=== PATIENT | female | born 1995 | race African-American/Black ===

== ENCOUNTER 2019-05-05 01:07 | Emergency (ER) | payer OTHER ==
[2019-05-05] MEDS ORDERED: SODIUM CHLORIDE 0.9% 1000 ML INFUS.BAG IV ONE (01:24)
[2019-05-05] MEDS ORDERED: ACETAMINOPHEN 1000 MG/100 ML VIAL (NON FORMULARY) IVPB ONE (01:24)
[2019-05-05] MEDS ORDERED: FAMOTIDINE 20 MG/50 ML IVPB 20 MG/50 ML MG IVPB ONE ×2 (01:24→03:14)
--- NOTE | 2019-05-05 01:42 | PDOC ---
History of Present Illness - General Stated Complaint: BACK AND ABDOMINAL PAIN Time Seen by Provider: 05/05/19 01:19 - History of Present Illness Initial Comments: 05/05/19 01:43 23 y/o F hx of narcoplepsy presents to the ER with 1 day of epigastric pain radiating to her back. She last had cereal and popcorn today and had chicken parmesan with pasta earlier for lunch today. She has had one episode on non- bloody non-bilious emesis a few minutes prior to presentation to ER. Her pain is now 5/10 in severity and is more improved after vomiting. She denies any fevers, chills, sick contacts, diarrhea, bloody stool or melena. 05/05/19 01:44 Past History - Past Medical History Allergies/Adverse Reactions: Allergies Allergy/AdvReac Type Severity Reaction Status Date / Time No Known Allergies Allergy Verified 05/05/19 01:44 Home Medications: Ambulatory Orders Cephalexin [Keflex] 500 mg PO BID #10 capsule 05/05/19 *Physical Exam - Physical Exam Comments: 05/05/19 01:43 PE: GENERAL: Awake, alert, and fully oriented, in no acute distress HEAD: No signs of trauma, normocephalic, atraumatic EYES: PERRLA, EOMI, sclera anicteric, conjunctiva clear ENT: Auricles normal inspection, hearing grossly normal, nares patent, oropharynx clear without exudates. Moist mucosa NECK: Normal ROM, supple, no lymphadenopathy, JVD, or masses LUNGS: No distress, speaks full sentences, clear to auscultation bilaterally HEART: Regular rate and rhythm, normal S1 and S2, no murmurs, rubs or gallops, peripheral pulses normal and equal bilaterally. ABDOMEN: Soft, , normoactive bowel sounds epigastric tenderness. No guarding, no rebound. No masses EXTREMITIES : Normal inspection, Normal range of motion, no edema. No clubbing or cyanosis NEUROLOGICAL: Cranial nerves II through XII grossly intact. Normal speech, normal gait, no focal sensorimotor deficits SKIN: Warm, Dry, normal turgor, no rashes or lesions noted ED Treatment Course - LABORATORY CBC & Chemistry Diagram: 05/05/19 02:18 05/05/19 02:18 Medical Decision Making - Medical Decision Making 05/05/19 01:53 23 y/o F hx of narcoplepsy presents to the ER with 1 day of epigastric pain radiating to her back Bedside RUQ U/S showed gallstone with no cholecystitis Hernandez's sign negative on U/s cbc, cmp, ua, pt/inr, ptt, lipase 05/05/19 04:24 RUQ u/s FINDINGS: Right upper quadrant ultrasound: The liver is normal, without mass or biliary duct dilation. The gallbladder contains small stones without secondary findings of cholecystitis. The CBD is not dilated and measures4 millimeters in diameter. Right kidney measures 9.1centimeters in length and is unremarkable. The visualized aorta and IVC are normal. Pancreas is partially obscured, but appears normal. Abdominal duplex: The main portal vein demonstrates normal hepatopedal flow Discharge - Discharge Information Problems reviewed: Yes Clinical Impression/Diagnosis: UTI (urinary tract infection) Qualifiers: Urinary tract infection type: site unspecified Hematuria presence: without hematuria Qualified Code(s): N39.0 - Urinary tract infection, site not specified Gallstone Qualifiers: Cholecystitis presence: without cholecystitis Biliary obstruction: without biliary obstruction Qualified Code(s): K80.20 - Calculus of gallbladder without cholecystitis without obstruction Condition: Improved Disposition: HOME - Admission No - Additional Discharge Information Prescriptions: Cephalexin [Keflex] 500 mg PO BID #10 capsule - Follow up/Referral Referrals: Nixon Feliz MD [Primary Care Provider] - - Patient Discharge Instructions Patient Printed Discharge Instructions: DI for Gallstones, DI for Urinary Tract Infection (UTI) Additional Instructions: You were seen in the ER for abdominal pain you were found to have gallstones and a urinary tract infections you were given medications for pain and nausea You are being sent home with a prescription for antibiotics take as directed even if you start to feel better. Return to the ER if abdominal pain worsens/ does not go away fevers, chills, nausea, vomiting. Follow up with your PCP - Post Discharge Activity
--- NOTE | 2019-05-05 01:52 | PDOC ---
Documentation entered by Patricia Martinez SCRIBE, acting as scribe for Yolanda Marks DO. Yolanda Marks DO: This documentation has been prepared by the Michelle carroll Adrianna, SCRIBE, under my direction and personally reviewed by me in its entirety. I confirm that the documentation accurately reflects all work, treatment, procedures, and medical decision making performed by me. Attending Attestation - Resident Resident Name: Jyoti Valadez - ED Attending Attestation I have performed the following: I have examined & evaluated the patient, The case was reviewed & discussed with the resident, I agree w/resident's findings & plan, Exceptions are as noted - HPI HPI: The patient is a 23 year old female, with a significant PMH of narcolepsy and ?? DM, who presents to the ED for evaluation of abdominal pain for 2 days. Patient complains of epigastric abdominal pain that radiates to her back. She reports having pasta and chicken parm for lunch, followed by cereal and popcorn for dinner. She developed the epigastric pain shortly after. Patient endorses one episode of nausea and NBNB vomit en route to the ED. She reports one episode of similar symptoms 3 months ago, where she was seen at an Urgent Care and told it was viral. She denies any other complaints at this time. Denies fever, chills, chest pain, SOB, diarrhea, constipation, dysuria, hematuria. Allergies: NKA, NKDA Surgical History: None reported Social History: Denies EtOH, tobacco, or illicit drug use - Physicial Exam PE: Constitutional: Awake, alert, oriented. No acute distress. Head: Normocephalic. Atraumatic Eyes: PERRL. EOMI. Conjunctivae are not pale. ENT: Mucous membranes are moist and intact. Posterior pharynx without exudates or erythema. Uvula midline. Neck: Supple. Full ROM. No lymphadenopathy. Cardiovascular: Regular rate. Regular rhythm. S1, S2 regular. Distal pulses are 2+ and symmetric. Pulmonary/Chest: No evidence of respiratory distress. Clear to auscultation bilaterally No wheezing, rales or rhonchi. Abdominal: +Epigastric tenderness to palpation. Soft and non-distended. No rebound, guarding or rigidity. No organomegaly. No palpable masses. Good bowel sounds. Back: No CVA tenderness. Musculoskeletal: No edema. No cyanosis. No clubbing. Full range of motion in all extremities. Nocalf tenderness. Radial/pedal pulses are intact and 2+ bilaterally Skin: Skin is warm and dry. No petechiae. No purpura. Neurological: Alert and oriented to person, place, and time. Cranial nerves II -XII are grossly intact. Normal speech. Strength is grossly symmetric. No sensory deficits. Psychiatric: Good eye contact. Normal interaction, affect and behavior. - Medical Decision Making 05/05/19 01:48 I, Dr. Yolanda Marks, DO, attest that this document has been prepared under my direction and personally reviewed by me in its entirety. I further attest, that it accurately reflects all work, treatment, procedures and medical decision -making performed by me. a/p: 23yo female with epigastric pain that radiates to her back -assoc with 1 episode of n/v - nbnb -bedside ultrasound shows gallstones without sono murphys or pericholecystic fluid or gbw thickening -concern for gastritis, pud, gallstones/symptomatic cholelithiasis, pancreatitis -ate cereal and popcorn -will send labs, ultrasound -will give ivf hydration, pepcid, zofran -will monitor and reassess 05/05/19 02:10 pt signed out to the oncoming ED team pending labs, ultrasound, meds, and reassess
[2019-05-05 02:04] VITALS: BP 113/64; PULSE 80; TEMP 98.7; BMI 40.1
[2019-05-05 02:35] LABS: BASO % 0.8 % (0-2.0); EOS % 4.9 % (0-4.5); HEMATOCRIT 37.9 % (32.4-45.2); HEMOGLOBIN 11.9 GM/dL (10.7-15.3); LYMPH % 21.9 % (8-40); MCHC 31.4 g/dl (32.0-36.0); MEAN CELL VOLUME 79.6 fl (80-96); MEAN PLT VOLUME 8.3 fl (7.5-11.1); MONO % 4.9 % (3.8-10.2); NEUT % 67.5 % (42.8-82.8); PLATELET COUNT 312 K/MM3 (134-434); RBC 4.76 M/mm3 (3.60-5.2); RDW 14.4 % (11.6-15.6); WHITE BLOOD COUNT 8.6 K/mm3 (4.0-10.0)
[2019-05-05 02:58] LABS: INR 1.01 (0.83-1.09); PROTHROMBIN TIME (PATIENT) 11.9 SEC (9.7-13.0)
[2019-05-05 03:12] LABS: ALBUMIN 3.6 g/dl (3.4-5.0); BILIRUBIN,TOTAL 0.3 mg/dL (0.2-1); BLOOD UREA NITROGEN 10.9 mg/dL (7-18); CALCIUM 9.2 mg/dL (8.5-10.1); CREATININE 0.7 mg/dL (0.55-1.3); POTASSIUM 5.2 mmol/L (3.5-5.1); TOT PROT 7.4 g/dl (6.4-8.2)
[2019-05-05] MEDS ORDERED: SODIUM CHLORIDE 1,000 ML IV STA (04:02)
[2019-05-05 05:29] LABS: EPI CELLS 6.2 /HPF (0-5/HPF); HYALINE CASTS 3 /lpf (0-8); PH,URINE 7.5 (5.0-8.0); URINE APPEARANCE CLEAR; URINE BACTERIA 297.5 /hpf (NEGATIVE); URINE BILIRUBIN NEGATIVE (NEGATIVE); URINE COLOR YELLOW; URINE GLUCOSE (UA) NEGATIVE (NEGATIVE); URINE KETONE NEGATIVE (NEGATIVE); URINE LEUK ESTERASE TRACE (NEGATIVE); URINE NITRITE NEGATIVE (NEGATIVE); URINE PROTEIN NEGATIVE (NEGATIVE); URINE RBC 1 /hpf (0-4); URINE WBC 10 /hpf (0-5)
[2019-05-05] MEDS ORDERED: CEPHALEXIN MONOHYDRATE 500 MG CAPSULE (UD) PO ONE (05:52)
[2019-05-05] MEDS ORDERED: CEPHALEXIN MONOHYDRATE 500 MG CAPSULE (UD) ONE (06:06)
== END 2019-05-05 06:19 | disposition home or self-care (01) ==
LOC: JER 01:07
PROC: 3E0337Z Introduction of Electrolytic and Water Balance Substance into Peripheral Vein, Percutaneous Approach (ICD-10-PCS; principal; 2019-05-05)
PROC: 3E033GC Introduction of Other Therapeutic Substance into Peripheral Vein, Percutaneous Approach (ICD-10-PCS; 2019-05-05)
PROC: 3E033NZ Introduction of Analgesics, Hypnotics, Sedatives into Peripheral Vein, Percutaneous Approach (ICD-10-PCS; 2019-05-05)
PROC: BF42ZZZ Ultrasonography of Gallbladder (ICD-10-PCS; 2019-05-05)
DX: N39.0 Urinary tract infection, site not specified (principal); K80.20 Calculus of gallbladder without cholecystitis without obstruction
CPT/HCPCS: 36415; 76705-TC; 80053; 81003; 83690; 84703; 85025; 85610; 85730; 99283-25; J0131; J7030

== ENCOUNTER 2023-03-05 03:47 | Emergency (ER) | payer OTHER ==
[2023-03-05 04:32] VITALS: BMI 40.7
[2023-03-05] MEDS ORDERED: MAG HYDROX/AL HYDROX/SIMETH 30 ML UNIT-DOSE CUP PO ONE (04:51)
[2023-03-05] MEDS ORDERED: FAMOTIDINE 20 MG/50 ML IVPB 20 MG/50 ML MG IVPB ONE ×2 (04:51→05:00)
[2023-03-05] MEDS ORDERED: ACETAMINOPHEN 1000 MG/100 ML BAG IVPB ONE (04:51)
[2023-03-05] MEDS ORDERED: MAG HYDROX/AL HYDROX/SIMETH 30 ML UNIT-DOSE CUP ONE (05:00)
[2023-03-05] MEDS ORDERED: ACETAMINOPHEN INJECTION 100 ML IVPB ONE (05:00)
[2023-03-05 06:27] LABS: INR 1.17 (0.83-1.09); PROTHROMBIN TIME (PATIENT) 13.6 SEC (9.7-13.0)
[2023-03-05 06:29] LABS: ACTIVATED PTT 32.6 SECONDS (25.2-36.5)
[2023-03-05 06:36] LABS: POTASSIUM 4.2 mmol/L (3.5-5.1)
[2023-03-05 06:37] VITALS: RESP 16
[2023-03-05 06:38] LABS: ALBUMIN 3.2 g/dl (3.4-5.0); CALCIUM 8.6 mg/dL (8.5-10.1)
[2023-03-05 06:39] LABS: BLOOD UREA NITROGEN 12.4 mg/dL (7-18)
[2023-03-05 06:41] LABS: CREATININE 0.7 mg/dL (0.55-1.3)
[2023-03-05 06:43] LABS: BILIRUBIN,TOTAL 0.2 mg/dL (0.2-1); TOT PROT 7.6 g/dl (6.4-8.2)
[2023-03-05 06:47] LABS: EPI CELLS 15 /uL (0-25.1); HYALINE CASTS 5 /uL (0-3.1); URINE APPEARANCE CLEAR; URINE BACTERIA 355 /uL (0-1359); URINE BILIRUBIN NEGATIVE (NEGATIVE); URINE COLOR YELLOW; URINE GLUCOSE (UA) NEGATIVE (NEGATIVE); URINE KETONE TRACE (NEGATIVE); URINE LEUK ESTERASE 1+ (NEGATIVE); URINE NITRITE NEGATIVE (NEGATIVE); URINE PROTEIN NEGATIVE (NEGATIVE); URINE RBC 18 /uL (0-23.9); URINE WBC 294 /uL (0-25.8)
[2023-03-05 06:47] LABS: HEMOGLOBIN 10.9 GM/dL (10.7-15.3); MCH 24.7 pg (25.7-33.7); MEAN CELL VOLUME 74.9 fl (80-96); PLATELET COUNT 352 10^3/uL (134-434); RBC 4.41 M/mm3 (3.60-5.2); RDW 14.6 % (11.6-15.6); WHITE BLOOD COUNT 9.9 K/mm3 (4.0-10.0)
[2023-03-05 07:04] LABS: HCG,QUALITATIVE URINE Negative
[2023-03-05 08:42] LABS: ANISOCYTOSIS 0; HELMET CELLS 0; HOWELL-JOLLY BODIES 0; MACROCYTOSIS 0; OVALOCYTE 0; ROULEAU 0; SICKELED CELLS 0; TARGET CELLS 0; TEAR DROP CELLS 0; TOXIC GRANULATION 0
[2023-03-05] MEDS ORDERED: CEPHALEXIN MONOHYDRATE 500 MG CAPSULE (UD) PO ONE (08:50)
[2023-03-05] MEDS ORDERED: CEPHALEXIN MONOHYDRATE 500 MG CAPSULE (UD) ONE (09:21)
[2023-03-05 09:38] VITALS: BP 124/66; PULSE 88; TEMP 98
== END 2023-03-05 09:33 | disposition home or self-care (01) ==
LOC: JER 03:47
PROC: 3E033GC Introduction of Other Therapeutic Substance into Peripheral Vein, Percutaneous Approach (ICD-10-PCS; principal; 2023-03-05)
PROC: 3E033GC Introduction of Other Therapeutic Substance into Peripheral Vein, Percutaneous Approach (ICD-10-PCS; 2023-03-05)
DX: R10.11 Right upper quadrant pain (principal); R10.31 Right lower quadrant pain; M54.50 Low back pain, unspecified; K80.20 Calculus of gallbladder without cholecystitis without obstruction; N39.0 Urinary tract infection, site not specified
CPT/HCPCS: 36415; 76705-TC; 80053; 81003; 83690; 84703; 85025; 85610; 85730; 87086; 99284-25

== ENCOUNTER 2023-03-05 15:38 | Emergency (ER) | payer OTHER ==
[2023-03-05 16:26] VITALS: BP 136/82; PULSE 105; RESP 18; TEMP 99; BMI 40.7
[2023-03-05] MEDS ORDERED: IBUPROFEN 600 MG TABLET (FP) PO ONE ×2 (17:52→17:58)
== END 2023-03-05 17:59 | disposition home or self-care (01) ==
LOC: JER 15:38 → JERFT 15:38
DX: R10.30 Lower abdominal pain, unspecified (principal); M54.50 Low back pain, unspecified; R68.83 Chills (without fever); M79.10 Myalgia, unspecified site; N39.0 Urinary tract infection, site not specified; R11.0 Nausea
CPT/HCPCS: 99283-25